=== PATIENT | female | born 1990 | race American Indian/Alaskan Native ===

== ENCOUNTER 2017-07-26 18:28 | Emergency (ER) | payer OTHER ==
[2017-07-26 20:02] LABS: HCG Qualitative,Urine Negative (Negative)
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
[2017-07-26] MEDS ORDERED: FLEXERIL PO ONE (21:33)
[2017-07-26] MEDS ORDERED: MOTRIN PO ONE (21:33)
[2017-07-26 22:42] VITALS: BP 119/86
== END 2017-07-26 22:42 | disposition home or self-care (01) ==
LOC: ED 18:28
DX: S60.811A Abrasion of right wrist, initial encounter (principal); R07.89 Other chest pain; V43.52XA Car driver injured in collision with other type car in traffic accident, initial encounter; Y93.89 Activity, other specified; Y92.89 Other specified places as the place of occurrence of the external cause; Y99.8 Other external cause status
CPT/HCPCS: 71110; 81025; 99284